=== PATIENT | male | born 1960 ===

== ENCOUNTER 2017-09-13 06:06 | Day surgery (SDC) | payer BC ==
[~2017-09-13 06:06] MED LIST: Buffered Lidocaine 0.9% SYRIN* 5 ML/SYR SYRINGE INTRADERM ONE; Dexamethasone IV* 4 MG/ML 1 ML (4 MG) IV SLOW PU ONE; Famotidine IV* 10 MG/ML 2 ML (20 mg) IV ONE
[2017-09-13] MEDS ORDERED: Dexamethasone IV* 4 MG/ML 1 ML (4 MG) ONE (06:15)
[2017-09-13] MEDS ORDERED: Ketorolac INJ* 30 MG/ML 1 ML VIAL ONE ×2 (06:15→07:15)
[2017-09-13] MEDS ORDERED: ceFAZolin 2 GM PREMIX (*) 2 GM/50 ML BAG IVPB ONE (06:15)
[2017-09-13] MEDS ORDERED: Famotidine IV* 10 MG/ML 2 ML (20 mg) ONE (06:15)
[2017-09-13] MEDS ORDERED: Propofol* 10 MG/ML 20 ML BTL IV PUSH ONE (06:53)
[2017-09-13] MEDS ORDERED: Lidocaine 2% PF * 5 ML VIAL ONE (06:53)
[2017-09-13] MEDS ORDERED: Midazolam* 1 MG/ML 5 ML VIAL (5 MG) ONE (06:53)
[2017-09-13] MEDS ORDERED: fentaNYL* 50 MCG/ML 2 ML VIAL (100 MCG VIAL) ONE (06:53)
[2017-09-13] MEDS ORDERED: Lidocaine 1% MPF wEPI 200,000* 30 ML SDV ONE (06:56)
[2017-09-13] MEDS ORDERED: Bupivacaine 0.5% PF 10 ML VIAL INJ ONE (06:56)
[2017-09-13] MEDS ORDERED: Naloxone* 0.4 MG/ML 1 ML VIAL IV PRN (07:12)
[2017-09-13] MEDS ORDERED: HYDROcodone/ACETAMIN 5-325 MG* 1 TAB PO PRN (07:12)
[2017-09-13] MEDS ORDERED: fentaNYL* 50 MCG/ML 2 ML VIAL (100 MCG VIAL) IV PRN (07:12)
[2017-09-13] MEDS ORDERED: Ondansetron INJ* 2 MG/ML VIAL IV PRN (07:12)
[2017-09-13] MEDS ORDERED: oxyCODONE/Acetamin 5/325 MG* TAB PO PRN (07:12)
--- NOTE | 2017-09-13 08:27 | OP ---
Operative Report - Blank - Operative Report Date of Operation: 09/13/17 Note: Preop Dx: Left Inguinal Hernia Postop Dx: Same Procedure: Open Left Inguinal Hernia Repair with Mesh Surgeon: Shiela Assist: MOSHE Lucas Anesthesia: MAC Fluids: 700mL RL EBL: <5mL Drains: None Specimen: None Complications: None Findings: Dictated
[2017-09-13 11:16] VITALS: BP 133/87
--- NOTE | 2017-09-14 09:57 | OP ---
CC: Dr. Laura Saenz * DATE OF OPERATION: 09/13/17 - SDS DATE OF : 60 SURGEON: Heriberto Kuo MD GLASS MECHANIC: None. ANESTHESIOLOGIST: Howard Webster MD ANESTHESIA: LMAC anesthesia. PRE-OP DIAGNOSIS: Left inguinal hernia. POST-OP DIAGNOSIS: Left inguinal hernia. OPERATIVE PROCEDURE: Open repair, left inguinal hernia with mesh. DESCRIPTION OF PROCEDURE: The patient was supine on the operating room table. After adequate intravenous sedation, compression stockings, Bell Hugger warmer, and intravenous antibiotics, the left groin was clipped and prepped with antiseptic, draped in a sterile fashion. Local infiltrative anesthesia was administered and an approximately 2-1/2 inch incision was created in the left groin. Dissection carried down through the layers to the external oblique, which was opened in the direction of its fibers and cord structures tacked up with a [place] drain. Hernia was indirect and was dissected free from the cord structures and reduced. Then, a cone mesh plug was placed into the internal ring, sutured there with 2-0 Vicryl. Second piece of mesh was placed over the inguinal floor, sutured at the tubercle. Tails were split, brought around the cord structures, tacked down laterally. External oblique was closed over top with 2-0 Vicryl, Stephen's with 3-0 Vicryl, skin with 4-0 Surgipro followed by a sterile dressing. He tolerated the procedure well, was awakened and brought to Recovery in good condition. No complications. No drains. No pathologic specimens. Sponge and instrument counts correct. Estimated blood loss 10 mL. [id number]/[facility] #: [id number] MTDD
== END 2017-09-13 11:17 | disposition home or self-care (01) ==
LOC: OR 06:06
PROVIDERS: ATTEND Surgery
DX: K40.90 Unilateral inguinal hernia, without obstruction or gangrene, not specified as recurrent (principal); J45.909 Unspecified asthma, uncomplicated; E78.5 Hyperlipidemia, unspecified
CPT/HCPCS: C1781; J0690; J1100; J1885; J2001; J2250; J2704; J3010